=== PATIENT | female | born 1965 | race Caucasian/White ===

== ENCOUNTER 2018-07-01 22:04 | Inpatient (IN) | payer BC ==
[~2018-07-01] VITALS: Ht 154.9 cm; Wt 67.1 kg
[2018-07-01 22:09] VITALS: BP_SYST 148
[2018-07-01] MEDS ORDERED: ASPIRIN 81 MG TAB.CHEW PO ONE (22:30)
[2018-07-01 23:06] LABS: HEMATOCRIT 40.1 % (36-48); HEMOGLOBIN 13.7 g/dL (12.0-16.0); RED BLOOD CELL COUNT(AUTO) 4.51 MIL/uL (4.2-6.2); WHITE BLOOD COUNT (AUTO) 7.2 K/uL (4.8-10.8)
[2018-07-01 23:07] LABS: BASOPHILS % (AUTO) 0.5 % (0.0-2.0); EOSINOPHILS % (AUTO) 1.5 % (0.0-4.0); LYMPHOCYTES # (AUTO) 2.2 K/uL (1.0-5.5); LYMPHOCYTES % (AUTO) 30.7 % (20.5-51.5); MEAN CORPUSCULAR HEMOGLOBIN 30 pg (27-31); MEAN CORPUSCULAR HGB CONC 34 % (32-36); MEAN CORPUSCULAR VOLUME 89 fL (79.0-98.0); MONOCYTES % (AUTO) 8.5 % (1.7-9.3); NEUTROPHILS # (AUTO) 4.2 K/uL (1.8-7.7); NEUTROPHILS % (AUTO) 58.8 % (40.0-70.0); PLATELET COUNT (AUTO) 236 K/uL (130-430); RED CELL DISTRIBUTION WIDTH 13.4 % (9.0-15.0)
[2018-07-01 23:08] LABS: EOSINOPHILS # (AUTO) 0.1 K/uL (0.0-0.4); MONOCYTES # (AUTO) 0.6 K/uL (0.0-1.0)
[2018-07-01 23:32] LABS: CALCIUM 8.9 mg/dL (8.4-11.0); CREATININE 0.63 mg/dL (0.55-1.30); POTASSIUM 3.9 mmol/L (3.5-5.1)
[2018-07-01 23:39] LABS: TOTAL BILIRUBIN 0.5 mg/dL (0.0-1.0)
[2018-07-01 23:52] LABS: PROTHROMBIN TIME 9.9 SECS (9.5-12.5)
[2018-07-02] VITALS (7 sets, daily range): BP systolic 102–129
--- NOTE | 2018-07-02 00:30 | NUR ---
Placed in room 1 . Placed on warp dyeing vat tender, blood pressure machine and pulse oximeter. To gown for exam. Side rails up.
--- NOTE | 2018-07-02 00:57 | NUR ---
Pt came to the ED for chest pain. Pt describes pain as "chest tightness." Reports pain is 5/10. Denies n/v/d or fever. HX of non-hodkins lymphoma but reports last radiation treatment was May 2015. No other complaints/injuries noted. Will cont. to monitor.
[2018-07-02] MEDS ORDERED: ASPIRIN 81 MG TAB.CHEW ONE (00:59)
--- NOTE | 2018-07-02 00:59 | NUR ---
ER at bedside examining patient.
[2018-07-02] MEDS ORDERED: ASPIRIN 81 MG TAB.CHEW PO ONE (01:00)
--- NOTE | 2018-07-02 01:00 | NUR ---
PT resting comfortably in bed. No signs of acute distress. Will cont. to monitor.
--- NOTE | 2018-07-02 01:00 | NUR ---
PT resting comdfortably in bed. No signs of acute distress. Will cont. to monitor.
--- NOTE | 2018-07-02 02:00 | NUR ---
Pt sleeping in bed with at bedside. No signs of acute distress. Will cont. to monitor.
--- NOTE | 2018-07-02 03:00 | NUR ---
Pt resting in bed. No signs of distress.
--- NOTE | 2018-07-02 04:15 | NUR ---
Patient will be admitted to care of Dr. Sam. Admitted to Tele unit. Will go to room 135. Belongings list completed. Summary report printed. Report will be given at bedside.
[2018-07-02] MEDS ORDERED: NITROGLYCERIN 0.4 MG TAB.SUBL SL ONE (04:30)
--- NOTE | 2018-07-02 05:06 | NUR ---
ADMISSION: The patient, JANICE UNDERWOOD, 52 y/o, F admitted by SAMIA ARROYO MD,WITH THE DIAGNOSIS CHEST PAIN , was given written information regarding hospital policies, unit procedures and contact persons.
--- NOTE | 2018-07-02 05:31 | NUR ---
CONSULTATION PAGED/CALLED Reason for Consultation: CHEST PAIN Person Who was Notified: KJ Consulting Physician: LIZZETH Educational Psychology Professor Specialty: CARDIO Ordering Physician: CRUZ
--- NOTE | 2018-07-02 07:29 | NUR ---
End of shift note Patient is resting comfortably at this time with at bedside. No s/s of any distress noted. All needs met and anticipated by noc nurses. Endorse to incoming nurse
--- NOTE | 2018-07-02 07:40 | NUR ---
AM NOTES IN BED, AWAKE ALERT AND ORIENTED. DENIES ANY CHEST PAIN OR SHORTNESS OF BREATH AT THIS TIME. AMBULATE WITH STEADY GAIT. FAMILY AT BEDSIDE. SAFETY PRECAUTION OBSERVED. CALL LIGHT WITHIN REACH. WILL CONTINUE TO MONITOR.
[2018-07-02] MEDS: ASPIRIN 81 MG TAB.CHEW PO SCH (08:43)
[2018-07-02 10:41] LABS: CHOLESTEROL 119 mg/dL (<200); HDL CHOLESTEROL 36 mg/dL (>55); LDL CHOLESTEROL 73 mg/dL (<100); TRIGLYCERIDES 89 mg/dL (30-150)
--- NOTE | 2018-07-02 11:52 | NUR ---
Notes- resting in bed, denies any chest pain. seen by Dr. Contreras. 2decho done. no acute distress noted. safety precaution. call light in reach. will continue to monitor.
--- NOTE | 2018-07-02 14:13 | NUR ---
Notes- Resting in bed, Seen by Dr. Sam at bedside. denies any Chest pain or discomfort. No acute distress noted.
[2018-07-02] MEDS ORDERED: ENOXAPARIN SODIUM 40 MG/0.4 ML SYRINGE SUBCUT ONE (14:30)
--- NOTE | 2018-07-02 18:35 | NUR ---
Notes- In bed, eating dinner. denies any chest pain or discomfort. family at bedside. safety precaution observed. call light in reach. will monitor.
--- NOTE | 2018-07-02 19:30 | NUR ---
CHANGE OF SHIFT: pt. awake, alert and oriented, andorran speaking, speaks little bit of Lao, denies any chest pain, reminded to use call light for help and verbalized understanding.
--- NOTE | 2018-07-02 20:00 | NUR ---
NOTES: checked pt.,family at bedside. denies any chest pain nor shortness of breath. on monitoring and evaluation advisor and shows sinus bradycardia. moves all extremities. IV lock on rt. antecubital. instructed to call nurse for help.
--- NOTE | 2018-07-02 22:00 | NUR ---
NOTES: pt. sleeping when checked. pt. at bedside,will stay for the night. no complaints manifested.
--- NOTE | 2018-07-03 01:00 | NUR ---
NOTES: pt. asleep, on sinus bradycardia, will continue to monitor.
--- NOTE | 2018-07-03 03:07 | NUR ---
NOTES: pt. sleeping. condition unchanged.
--- NOTE | 2018-07-03 05:28 | NUR ---
NOTES: pt. still asleep, remain at bedside. remains sinus bradycardia.
--- NOTE | 2018-07-03 06:30 | NUR ---
CLOSING NOTES; pt. still sleeping, no complaints manifested, no chest pain. for further care and assistance, will endorse to day shift.
--- NOTE | 2018-07-03 07:55 | NUR ---
OPENING NOTE patient is resting in bed, visitor present, A&Ox4, assessment completed, educated on plan of care and call light system, patient verbalized understanding, patient denies any pain at this time, no signs of respiratory distress, bed in the lowest position, two side rails up, call light within reach, fall and aspiration precautions in place.
--- NOTE | 2018-07-03 08:20 | NUR ---
patient off unit for cardiac stress test.
[2018-07-03 09:15] VITALS: BP_SYST 105
[2018-07-03] MEDS ORDERED: THEOPHYLLINE ANHYDROUS 200 MG TAB.SR.12H PO ONE (09:15)
[2018-07-03] MEDS ORDERED: THEOPHYLLINE ANHYDROUS 200 MG TAB.SR.12H PO SCH (09:15)
--- NOTE | 2018-07-03 09:35 | NUR ---
patient back on unit from stress test.
[2018-07-03] MEDS: ASPIRIN 81 MG TAB.CHEW PO SCH (09:39)
[2018-07-03] MEDS: ENOXAPARIN SODIUM 40 MG/0.4 ML SYRINGE SUBCUT SCH (09:40)
--- NOTE | 2018-07-03 09:45 | NUR ---
CONSULTATION PAGED/CALLED Reason for Consultation: [] BRADYCARDIA Person Who was Notified: [] MARY ELLEN Consulting Physician: [] DR NICHOLE Flower Planter Specialty: [] CARDIAC .NET ARCHITECT Ordering Physician: [] DR Kenyon MOREAU
[2018-07-03] MEDS: NACL 0.9% 1,000 ML IV SCH ×2 (09:50→19:40)
[2018-07-03] MEDS ORDERED: ATROPINE SULFATE 1 MG/10 ML SYRINGE IVP ONE (10:45)
--- NOTE | 2018-07-03 11:41 | NUR ---
ROUNDS patient is resting in bed, patient denies any pain at this time, no signs of respiratory distress, bed in the lowest position, two side rails up, bed alarm on, call light within reach, fall and aspiration precautions in place, IV line clean and intact.
[2018-07-03 12:25] VITALS: BP_SYST 101
--- NOTE | 2018-07-03 14:05 | NUR ---
ROUNDS patient is resting in bed, visitor present, patient denies any pain at this time, no signs of respiratory distress, patient was assisted to the bathroom, patient tolerated well, bed in the lowest position, two side rails up, bed alarm on, call light within reach, fall and aspiration precautions in place, IV line clean and intact.
[2018-07-03 16:41] VITALS: BP_SYST 99
--- NOTE | 2018-07-03 18:50 | NUR ---
CLOSING NOTE patient is resting in bed, patient denies any pain at this time, no signs of respiratory distress, no other needs at this time, will endorse report to noc shift nurse, bed in the lowest position, two side rails up, bed alarm on, call light within reach, fall and aspiration precautions in place, IV line clean and intact.
--- NOTE | 2018-07-03 19:15 | NUR ---
CHANGE OF SHIFT: pt. awake, alert, oriented, watching tv with at bedside. denies any chest pain, nor shortness of breath. IV NS @ 100 cc/hr. via rt. antecubital. call light within reach.
[2018-07-03 19:53] VITALS: BP_SYST 111
[2018-07-03] MEDS: THEOPHYLLINE ANHYDROUS 200 MG TAB.SR.12H PO SCH (20:28)
--- NOTE | 2018-07-03 20:30 | NUR ---
NOTES: due med given. pt. assisted to the restroom and voided. at bedside. pt. on room air. IVF patent. cardiac pattern shows sinus bradycardia @ 50. no chest pain. call light within reach.
[2018-07-03 23:29] VITALS: BP_SYST 119
--- NOTE | 2018-07-03 23:30 | NUR ---
NOTES: pt. still awake with family at bedside, c/o heartburn, will call MD. asked state appellate clerk to paged Dr. Sam.
[2018-07-03] MEDS ORDERED: FAMOTIDINE 20 MG TABLET PO ONE (23:45)
--- NOTE | 2018-07-03 23:45 | NUR ---
NOTES: Dr. Sam called back and with order, Pepcid 40 mg po given to pt. repositioned self for comfort. reminded to call if going to the restroom. family still at bedside.
--- NOTE | 2018-07-04 01:00 | NUR ---
NOTES: pt. 2 sons still at bedside, will stay for the night. continue to monitor.
--- NOTE | 2018-07-04 03:16 | NUR ---
NOTES: pt. sleeping. continue to monitor. condition observed.
--- NOTE | 2018-07-04 05:42 | NUR ---
NOTES: condition unchanged. pt. still asleep. IVF patent.
[2018-07-04] MEDS: NACL 0.9% 1,000 ML IV SCH ×2 (06:11→15:21)
--- NOTE | 2018-07-04 06:30 | NUR ---
CLOSING NOTES; pt. awakened, assisted to the restroom , ambulated without difficulty, no dizziness. pt. voided. no chest pain. IVF continuous with NS @ 100 cc/hr. for further care and assistance. at bedside. call light within reach.
--- NOTE | 2018-07-04 08:00 | NUR ---
OPENING NOTE patient received resting in bed A&O x4, patient denies any acute distress or pain at this time, breathing is even and unlabored on room air, educated patient on plan of care and call light system, will continue to monitor, IVF infusing well, safety precautions in place, at bedside, call light within reach.
[2018-07-04 08:01] VITALS: BP_SYST 110
[2018-07-04] MEDS: ASPIRIN 81 MG TAB.CHEW PO SCH (08:28)
[2018-07-04] MEDS: THEOPHYLLINE ANHYDROUS 200 MG TAB.SR.12H PO SCH (08:29)
[2018-07-04] MEDS: ENOXAPARIN SODIUM 40 MG/0.4 ML SYRINGE SUBCUT SCH (08:29)
--- NOTE | 2018-07-04 10:15 | NUR ---
NOTES patient is resting in bed on phone, patient denies any acute distress or pain at this time, breathing is even and unlabored on room air, IVF infusing as ordered, will continue to monitor, is at bedside, safety precautions in place, call light within reach.
[2018-07-04 11:17] VITALS: BP_SYST 105
--- NOTE | 2018-07-04 12:25 | NUR ---
NOTES patient is resting in bed eating lunch, patient denies any acute distress or pain at this time, breathing is even and unlabored on room air, IVF infusing as ordered, will continue to monitor, safety precautions in place, at bedside, call light within reach.
--- NOTE | 2018-07-04 14:56 | NUR ---
NOTES PATIENT IS RESTING IN BED, IVF INFUSING WELL WITH NO SIGNS OF INFILTRATION, BREATHING IS EVEN AND UNLABORED ON ROOM AIR, PATIENT DENIES ANY ACUTE DISTRESS OR PAIN AT THIS TIME, WILL CONTINUE TO MONITOR, SAFETY PRECAUTIONS IN PLACE, CALL LIGHT WITHIN REACH.
[2018-07-04 16:25] VITALS: BP_SYST 97
[2018-07-04 16:35] VITALS: BP_SYST 116
[2018-07-04] MEDS ORDERED: THEO200T21 PO (16:59)
[2018-07-04 17:00] VITALS: BP_SYST 116
--- NOTE | 2018-07-04 17:25 | NUR ---
D/C Patient Patient given medication reconciliation form and D/C instructions. Exit Care provided. Patient verbalized understanding. MD discussed with patient the results and treatment provided. Ambulatory with steady gait for discharge to home. Patient in stable condition, ID band removed. IV catheter removed, intact and dressing applied, no active bleeding. Rx of TIFFANY DUR given. Patient educated on pain management. All belongings sent with patient.
[2018-07-04] MEDS ORDERED: FAMOTIDINE 20 MG TABLET PO SCH (21:00)
== END 2018-07-04 17:30 | disposition home or self-care (01) | DRG 554 ==
LOC: SED 22:04 → STU 07-02 04:15
PROVIDERS: ADMIT Family Medicine; ATTEND Family Medicine
DX: M93.88 Other specified osteochondropathies other (principal); E78.5 Hyperlipidemia, unspecified; R00.1 Bradycardia, unspecified; R55 Syncope and collapse; Z90.710 Acquired absence of both cervix and uterus; Z85.72 Personal history of non-Hodgkin lymphomas; Z92.21 Personal history of antineoplastic chemotherapy
CPT/HCPCS: 36415; 71045; 80053; 80061; 82550-TC; 83880; 84484; 85025; 85610-TC; 85730-TC; 93005; 93017; 93306; 99285; G0378; J0461; J1650; J7030

== ENCOUNTER 2020-10-02 01:32 | Inpatient (IN) | payer BC, SELFPAY ==
[~2020-10-02] VITALS: Ht 160 cm; Wt 67.1 kg
[~2020-10-02 01:32] MED LIST: THEO200T21 PO
[2020-10-02 01:50] VITALS: BP_SYST 138
--- NOTE | 2020-10-02 01:50 | NUR ---
Patient to ER bed 6 to gown for evaluation. Side rails up.
--- NOTE | 2020-10-02 02:00 | NUR ---
Patient AAOx4 and ambulatory c/o upper abdominal pain with N/V/D after eating dinner last night. Patient stated after eating she started to vomit x 4. currently stating pain 8/10. Has history of Non-hodgkins and HLD. VSS.
--- NOTE | 2020-10-02 02:13 | NUR ---
Dr. Zazueta at bedside for patient evaluation.
[2020-10-02] MEDS ORDERED: NACL 0.9% 1,000 ML IV ONE (02:30)
[2020-10-02] MEDS ORDERED: MORPHINE 4 MG INJ. 4 MG/ML VIAL IVP ONE (02:30)
[2020-10-02] MEDS ORDERED: PROCHLORPERAZINE EDISYLATE 10 MG/2 ML VIAL IVP ONE (02:30)
--- NOTE | 2020-10-02 02:30 | NUR ---
# 20 gauge angiocath placed to RAC. Use of asceptic technique. Opsite placed over site. Blood return noted. Blood for lab drawn from site. Flushed with 10 cc of normal saline. No evidence of infiltration noted. Patient tolerated well. Urine specimen collected and sent to lab for analysis.
[2020-10-02 02:54] LABS: BASOPHILS % (AUTO) 0.2 % (0.0-2.0); BILIRUBIN,URINE NEGATIVE (NEGATIVE); BLOOD, URINE 2+ (NEGATIVE); CLARITY/URINE CLEAR (CLEAR); COLOR,URINE YELLOW (YELLOW); EOSINOPHILS # (AUTO) 0.1 K/uL (0.0-0.4); GLUCOSE,URINE NEGATIVE (NEGATIVE); HEMATOCRIT 41.9 % (36-48); KETONES,URINE NEGATIVE (NEGATIVE); LEUKOCYTE ESTERASE ,URINE NEGATIVE (NEGATIVE); LYMPHOCYTES # (AUTO) 0.7 K/uL (1.0-5.5); LYMPHOCYTES % (AUTO) 4.6 % (20.5-51.5); MEAN CORPUSCULAR HEMOGLOBIN 30 pg (27-31); MEAN CORPUSCULAR HGB CONC 34 % (32-36); MEAN CORPUSCULAR VOLUME 89 fL (79.0-98.0); MONOCYTES % (AUTO) 6.9 % (1.7-9.3); NEUTROPHILS # (AUTO) 12.6 K/uL (1.8-7.7); NEUTROPHILS % (AUTO) 87.3 % (40.0-70.0); NITRITE, URINE NEGATIVE (NEGATIVE); PLATELET COUNT (AUTO) 189 K/uL (130-430); PROTEIN URINE TRACE (NEGATIVE); RED BLOOD CELL COUNT(AUTO) 4.71 MIL/uL (4.2-6.2); RED CELL DISTRIBUTION WIDTH 13.5 % (9.0-15.0); UROBILINOGEN,URINE 0.2 (0.2-1.0); WHITE BLOOD COUNT (AUTO) 14.4 K/uL (4.8-10.8)
[2020-10-02 02:58] LABS: BACTERIA,URINE FEW /HPF (None Seen); WBC,URINE 0-3 /HPF (0-3)
[2020-10-02 03:09] LABS: CALCIUM 9.1 mg/dL (8.4-11.0); CREATININE 0.57 mg/dL (0.55-1.30); POTASSIUM 3.8 mmol/L (3.5-5.1)
[2020-10-02 03:15] LABS: ALBUMIN 4.3 g/dL (3.4-4.8); TOTAL BILIRUBIN 0.8 mg/dL (0.0-1.0)
--- NOTE | 2020-10-02 03:50 | NUR ---
PATIENT TAKEN TO CT SCAN VIA WHEELCHAIR BY RADIOLOGY STAFF.
--- NOTE | 2020-10-02 04:00 | NUR ---
Patient resting quietly. No acute distress noted. Vital signs within normal range.
[2020-10-02 05:47] VITALS: BP_SYST 102
--- NOTE | 2020-10-02 05:50 | NUR ---
COVID SWAB COLLECTED AND SENT TO LAB FOR ANALYSIS.
--- NOTE | 2020-10-02 06:11 | NUR ---
PATIENT TAKEN TO CTA SCAN VIA AMBULATORY WITH RADIOLOGY STAFF. VSS.
--- NOTE | 2020-10-02 07:09 | NUR ---
Report given to MACEY Apple who will assume care of patient.
--- NOTE | 2020-10-02 07:15 | NUR ---
Assumed care of patient, report received from MACEY Hale. Pt currently resting in bed, no acute distress noted.
--- NOTE | 2020-10-02 07:57 | NUR ---
Admit orders received from Dr. Olguin, pt to go to med-surg. Talked to [facility], [facility], no beds available on the floor right now, they will let us know when they have one open.
[2020-10-02] MEDS ORDERED: MORPHINE 4 MG INJ. 4 MG/ML VIAL IVP PRN (08:15)
[2020-10-02] MEDS ORDERED: ONDANSETRON HCL 4 MG/2 ML VIAL IVP PRN (08:15)
[2020-10-02] MEDS ORDERED: ACETAMINOPHEN 325 MG TABLET PO PRN (08:15)
[2020-10-02] MEDS ORDERED: MORPHINE 2 MG/ML INJ. SYRINGE IVP PRN (08:15)
[2020-10-02] MEDS ORDERED: D5NS 1,000 ML IV SCH (08:15)
[2020-10-02] MEDS ORDERED: METOCLOPRAMIDE HCL 10 MG/2 ML VIAL IVP PRN (08:15)
--- NOTE | 2020-10-02 10:14 | NUR ---
Dr. Johnson at bedside for consult
--- NOTE | 2020-10-02 11:42 | NUR ---
Requested hospital bed from [facility] for patient.
--- NOTE | 2020-10-02 12:21 | NUR ---
Pt and upset with Dr. Johnson consult, stated that nothing was explained to them and that he said her CT scan was normal and she didn't need to be admitted. Per , pt would like to sign out AMA. Dr. Au in to speak with patient and , still requesting to leave AMA. Paperwork signed and placed on chart. ID arm band removed. IV catheter removed intact and dressing applied, no active bleeding.
== END 2020-10-02 12:21 | disposition left against medical advice (07) | DRG 815 ==
LOC: SED 01:32 → SMU 07:49
PROVIDERS: ADMIT Internal Medicine Hospice and Palliative Medicine; ATTEND Internal Medicine Hospice and Palliative Medicine
DX: R59.1 Generalized enlarged lymph nodes (principal); C85.90 Non-Hodgkin lymphoma, unspecified, unspecified site; Z20.822 Contact with and (suspected) exposure to COVID-19; Z79.899 Other long term (current) drug therapy
CPT/HCPCS: 36415; 76376; 80053; 81000; 83615; 83690; 85025; 86886; 86900; 86901; J0780; J2270; Q9967

== ENCOUNTER 2022-10-16 05:14 | Inpatient (IN) | payer BC ==
[~2022-10-16] VITALS: Ht 162.6 cm; Wt 52.2 kg
[2022-10-16] VITALS (10 sets, daily range): BP systolic 94–126; PULSE 60–80; RESP 11–18; TEMP 96.1–98; O2SAT 97–100
--- NOTE | 2022-10-16 05:26 | NUR ---
Placed in room 6 . Placed on field crop farming supervisor, blood pressure machine and pulse oximeter. To gown for exam. Side rails up. Report given to VICENTA CHOUDHURY.
--- NOTE | 2022-10-16 05:26 | NUR ---
PT SHYANN from home and bulgarian speaker is complaining lowered abd pain 10/10,She usually has this pain, she was admintted by the same things 2 weeks ago at [facility]. N/V 4 times today. HX lympahopma, abd surgery
[2022-10-16] MEDS ORDERED: ONDANSETRON HCL 4 MG/2 ML VIAL IVP ONE ×2 (05:30→09:00)
[2022-10-16] MEDS ORDERED: NACL 0.9% 1,000 ML IV ONE ×2 (05:30→09:00)
[2022-10-16] MEDS ORDERED: fentaNYL CITRATE/PF 100 MCG/2 ML AMP IVP ONE (05:30)
[2022-10-16 05:59] LABS: BASOPHILS # (AUTO) 0.1 K/uL (0.0-0.2); BASOPHILS % (AUTO) 1.2 % (0.0-2.0); EOSINOPHILS # (AUTO) 0.1 K/uL (0.0-0.4); EOSINOPHILS % (AUTO) 1.4 % (0.0-4.0); HEMATOCRIT 35.1 % (36-48); HEMOGLOBIN 10.8 g/dL (12.0-16.0); LYMPHOCYTES # (AUTO) 1.1 K/uL (1.0-5.5); LYMPHOCYTES % (AUTO) 26.4 % (20.5-51.5); MEAN CORPUSCULAR HEMOGLOBIN 24 pg (27-31); MEAN CORPUSCULAR HGB CONC 31 % (32-36); MEAN CORPUSCULAR VOLUME 77 fL (79.0-98.0); MONOCYTES # (AUTO) 0.1 K/uL (0.0-1.0); MONOCYTES % (AUTO) 3.3 % (1.7-9.3); NEUTROPHILS # (AUTO) 2.9 K/uL (1.8-7.7); NEUTROPHILS % (AUTO) 67.7 % (40.0-70.0); PLATELET COUNT (AUTO) 167 K/uL (130-430); RED BLOOD CELL COUNT(AUTO) 4.58 MIL/uL (4.2-6.2); WHITE BLOOD COUNT (AUTO) 4.2 K/uL (4.8-10.8)
--- NOTE | 2022-10-16 06:05 | NUR ---
SON at the bedside
[2022-10-16 06:17] LABS: ALBUMIN 3.9 g/dL (3.4-4.8); CALCIUM 8.9 mg/dL (8.4-11.0); CREATININE 0.55 mg/dL (0.55-1.30); TOTAL BILIRUBIN 0.5 mg/dL (0.0-1.0)
--- NOTE | 2022-10-16 06:24 | NUR ---
pt went to CT
--- NOTE | 2022-10-16 06:43 | NUR ---
DR. REYES EXAMINING THE PATIENT
--- NOTE | 2022-10-16 07:30 | NUR ---
ASSUMED CARE OF A&OX 4 PT WITH CLEAR SPEECH AND PATENT AIRWAY AND 6/10 ABDOMINAL PAIN THAT BEGAN YESTERDAY. PT IS CURRENTLY UNDER TREATMENT AT [facility].
[2022-10-16] MEDS ORDERED: MORPHINE 4 MG INJ. 4 MG/ML VIAL IVP ONE (09:00)
[2022-10-16] MEDS ORDERED: metroNIDAZOLE 500 mg/NS 100 ML IV ONE (09:00)
[2022-10-16] MEDS ORDERED: ONDANSETRON HCL 4 MG/2 ML VIAL IVP PRN ×2 (09:00→14:00)
[2022-10-16] MEDS ORDERED: PIPERACILLIN/TAZO 3.375 GM in NS 50 ML IV ONE (09:00)
[2022-10-16] MEDS ORDERED: MORPHINE 4 MG INJ. 4 MG/ML VIAL IVP PRN (09:00)
[2022-10-16] MEDS ORDERED: DOCU-156 PO (09:06)
[2022-10-16] MEDS ORDERED: SULF1TAB47 (09:06)
[2022-10-16] MEDS ORDERED: PANT40TA45 PO (09:06)
--- NOTE | 2022-10-16 09:06 | NUR ---
Admit bed requested Patient will be admitted to care of . Admitted to TELE unit. Diagnosis ACUTE ABDOMEN Inpatient (Yes or No) YES Observation (Yes or No) NO Orientation concerns or request close to nursing station (Yes or No) NO Covid Status NA On vent or bipap NO Isolation requirements NO Needs a sitter NO From Home (Yes or if No enter name of facility) HOME Requires Dialysis (Yes or No) NO Med Rec Completed (Yes of No) YES
--- NOTE | 2022-10-16 09:30 | NUR ---
PER PT'S RADIOLOGY RESULTS PT WILL BE ADMITTED BY DR. WILLIAMSON AND CONSULTED BY DR. VELOZ FOR SURGERY. PT REMAINS STABLE ON BEDSIDE MONITOR.
[2022-10-16] MEDS ORDERED: PIPERACILLIN/TAZOBACTAM 3.375 GM/VIAL (ZOSYN) IV ONE (09:51)
[2022-10-16] MEDS ORDERED: NALOXONE HCL 0.4 MG/ML AMP (NARCAN) IVP PRN (10:45)
[2022-10-16] MEDS: HYDROmorphone 1 MG/ML INJ. CARTRIDGE IM PRN ×2 (10:57→19:44)
[2022-10-16 11:00] LABS: BILIRUBIN,URINE NEGATIVE (NEGATIVE); BLOOD, URINE NEGATIVE (NEGATIVE); CLARITY/URINE CLEAR (CLEAR); COLOR,URINE YELLOW (YELLOW); GLUCOSE,URINE NEGATIVE (NEGATIVE); KETONES,URINE NEGATIVE (NEGATIVE); LEUKOCYTE ESTERASE ,URINE NEGATIVE (NEGATIVE); NITRITE, URINE NEGATIVE (NEGATIVE); PROTEIN URINE NEGATIVE (NEGATIVE); UROBILINOGEN,URINE 0.2 (0.2-1.0)
--- NOTE | 2022-10-16 11:00 | NUR ---
MD WILLIAMSON AT BEDSIDE SPEAKING WITH PT ABOUT HE ADMISSION PLAN.
--- NOTE | 2022-10-16 11:10 | NUR ---
CLEAR YELLOW URINE COLLECTED AND SENT TO THE LAB.
--- NOTE | 2022-10-16 11:28 | NUR ---
MD VELOZ AT BEDSIDE SPEAKING WITH PT ABOUT PLANNED SURGERY.
--- NOTE | 2022-10-16 11:51 | NUR ---
PT TRANSPORTED TO THE OR BY OR NURSE CORY. CONSENT SIGNED BY MD VELOZ WHO SPOKE WITH PT AND EXPLAINED THE PROCEDURE AND EXPECTED OUTCOME. PT VERBALIZED UNDERSTANDING. PREOP CHECKLIST PERFORMED AND COMPLETED. PT IN GOWN AND NS INFUSING. PT A&OX 4 AND WITHOUT COMPLAINTS OF PAIN UPON TRANSFER TO OR.
[2022-10-16] MEDS ORDERED: ACETAMINOPHEN I.V. 1000 MG 100 ML IV ONE (12:41)
[2022-10-16] MEDS ORDERED: HYDROmorphone 1 MG/ML INJ. CARTRIDGE IVP PRN ×2 (12:45)
[2022-10-16] MEDS ORDERED: LR 1,000 ML IV SCH (12:45)
[2022-10-16] MEDS ORDERED: MEPERIDINE HCL/PF 25 MG/ML DISP.SYRIN IVP PRN (12:45)
[2022-10-16] MEDS ORDERED: METOCLOPRAMIDE HCL 10 MG/2 ML VIAL IVP PRN (12:45)
[2022-10-16] MEDS ORDERED: BUPIVACAINE LIPOSOME/PF 266 MG/20 ML VIAL INFIL ONE (13:43)
[2022-10-16] MEDS: CEFAZOLIN 1 GM IVPB PREMIX 50 ML IV SCH ×3 (14:00→22:30)
[2022-10-16] MEDS ORDERED: KETOROLAC TROMETHAMINE 15 MG VIAL IVP PRN (14:00)
[2022-10-16] MEDS ORDERED: HYDROmorphone 1 MG/ML INJ. CARTRIDGE ONE (14:26)
--- NOTE | 2022-10-16 15:00 | NUR ---
RN NOTES PATIENT CAME IN FROM PACU S/P EXPLOR. LAP/ SMALL BOWEL RESECTION. PATIENT SEEN AWAKE, NOT IN ACUTE DISTRESS, O2 VIA MASK, SPO2 GOOD. SCOPE SHOWS SINUS RHYTHM. NGT IN PLACE, CONNECTED TO LOW INTERMITTENT SUCTION. ABDOMINAL DRESSINGS DRY AND INTACT. MANTILLA CATH. TO DRAINAGE BAG. SCDs ON. INITIAL VITAL SIGN CHECKED AND RECORDED. WILL CONTINUE TO MONITOR PATIENT.
[2022-10-16] MEDS: HYDROmorphone 1 MG/ML INJ. CARTRIDGE IVP PRN (16:10)
[2022-10-16] MEDS: D5/0.45 NS 1,000 ML IV SCH ×2 (17:10→22:31)
--- NOTE | 2022-10-16 19:30 | NUR ---
RECEIVED LYING IN BED, AAO, FOLLOWS COMMANDS WELL. PATIENT IS ON 3LPM/NC, SATURATION WDL. ABLE TO TAKE DEEP BREATHS. MISSILE AND MISSILE CHECKOUT TECHNICIAN IS SHOWING NSR, DENIES CHEST PAIN. BLOOD PRESSURE IS STABLE. ABDOMINAL DRESSING IS DRY AND INTACT. MANTILLA IS DRAINING JONAH COLOR URINE. BILATERAL SCDS ARE ON. AFEBRILE.
[2022-10-16] MEDS: metroNIDAZOLE 500 mg/NS 100 ML IV SCH (22:29)
[2022-10-17] VITALS (11 sets, daily range): BP systolic 96–115; PULSE 62–75; RESP 10–18; TEMP 97.4–98.6; O2SAT 97–100
[2022-10-17] MEDS: HYDROmorphone 1 MG/ML INJ. CARTRIDGE IM PRN ×4 (00:16→22:07)
--- NOTE | 2022-10-17 00:22 | NUR ---
Reports pain to lower abdomen /10 and requesting pain medication. Dilaudid 1 mg IVP given as per MD orders. Will continue to monitor.
[2022-10-17] MEDS: D5/0.45 NS 1,000 ML IV SCH (05:00)
[2022-10-17 05:43] LABS: BASOPHILS % (AUTO) 0.2 % (0.0-2.0); EOSINOPHILS % (AUTO) 0.1 % (0.0-4.0); HEMATOCRIT 25.9 % (36-48); HEMOGLOBIN 8.1 g/dL (12.0-16.0); LYMPHOCYTES # (AUTO) 0.3 K/uL (1.0-5.5); LYMPHOCYTES % (AUTO) 5.6 % (20.5-51.5); MEAN CORPUSCULAR HEMOGLOBIN 24 pg (27-31); MEAN CORPUSCULAR HGB CONC 31 % (32-36); MEAN CORPUSCULAR VOLUME 76 fL (79.0-98.0); MONOCYTES # (AUTO) 0.5 K/uL (0.0-1.0); MONOCYTES % (AUTO) 7.8 % (1.7-9.3); NEUTROPHILS # (AUTO) 5.3 K/uL (1.8-7.7); NEUTROPHILS % (AUTO) 86.3 % (40.0-70.0); PLATELET COUNT (AUTO) 133 K/uL (130-430); RED BLOOD CELL COUNT(AUTO) 3.39 MIL/uL (4.2-6.2); RED CELL DISTRIBUTION WIDTH 17.9 % (9.0-15.0); WHITE BLOOD COUNT (AUTO) 6.2 K/uL (4.8-10.8)
[2022-10-17 06:07] LABS: ALBUMIN 2.4 g/dL (3.4-4.8); CALCIUM 7.1 mg/dL (8.4-11.0); CREATININE 0.45 mg/dL (0.55-1.30); TOTAL BILIRUBIN 0.9 mg/dL (0.0-1.0)
--- NOTE | 2022-10-17 06:30 | NUR ---
Received call from lab to report critical glucose level 589. Fingerstick performed immediately after for comparison. Glucose level FS 136. Called lab and order for re draw issued. waiting for new results of BMP re draw.
[2022-10-17] MEDS: metroNIDAZOLE 500 mg/NS 100 ML IV SCH ×3 (06:55→22:08)
[2022-10-17] MEDS: PIPERACILLIN/TAZO 3.375/DEX-IS 50 ML IV SCH ×4 (06:59→23:40)
[2022-10-17 07:19] LABS: CALCIUM 8.1 mg/dL (8.4-11.0); CREATININE 0.42 mg/dL (0.55-1.30)
--- NOTE | 2022-10-17 07:45 | NUR ---
RN NOTES PATIENT SEEN AWAKE AND ALERT, NOT IN ANY FORM OF DISTRESS. SINUS RHYTHM ON THE MONITOR. ABDOMINAL DRESSINGS DRY AND INTACT.
--- NOTE | 2022-10-17 08:00 | NUR ---
MD VISIT DR. MESSER HERE TO SEE PATIENT. WITH ORDERS. PT IS DOWNGRADED TO .
--- NOTE | 2022-10-17 08:45 | NUR ---
RN NOTES COMPLAINED OF PAIN ON THE POST OP SITE, ABDOMINAL AREA, SCALE OF 5/10. MEDICATED WITH DILAUDID IVP FOR COMFORT. REPOSITIONED.
[2022-10-17] MEDS: HYDROmorphone 1 MG/ML INJ. CARTRIDGE IVP PRN ×2 (08:46→13:03)
--- NOTE | 2022-10-17 09:50 | NUR ---
OPENING NOTES: RECEIVED BEDSIDE SBAR FROM ICU NURSE , PATIENT IS STABLE NO S/S OF ANY DISTRESS, NG TUBE TO LEFT SIDE NOSE, F/C DRAINING TO GRAVITY, ABD DRESSING CLEAN DRY INTACT, NO BLOOD SHOW, NC 3 LTS, SCD'S ON MIKE LEGS, ABLE TO MAKE NEEDS KNOWN, BED AT LOW AND LOCKED POSITION CALL LIGHT IN REACH, NPO AT THIS TIME. WILL GIVE MEDS PER ORDERS.
--- NOTE | 2022-10-17 09:50 | NUR ---
RN NOTES PATIENT TRANSFERRED TO RM 117A IN STABLE CONDITION. REPORT GIVEN TO MARIELLA NAVAS
[2022-10-17] MEDS ORDERED: *PPN PER PHARMACY XX PRN (13:30)
[2022-10-17] MEDS ORDERED: INSULIN REGULAR, HUMAN 100 UNITS/ML, 3 ML VIAL (humuLIN R) SUBCUT PRN (13:30)
[2022-10-17] MEDS ORDERED: DEXTROSE 50% JECT 50 ML DISP.SYRIN IVP PRN (13:30)
[2022-10-17 14:07] LABS: PHOSPHORUS 3.1 mg/dL (2.7-4.5)
[2022-10-17] MEDS ORDERED: MAGNESIUM SULFATE 50 ML IV ONE (14:30)
[2022-10-17] MEDS ORDERED: POTASSIUM CHLORIDE 40 MEQ in 0.45% NS 250 ML IV ONE (15:00)
[2022-10-17] MEDS: D5LR 1,000 ML IV SCH (16:35)
--- NOTE | 2022-10-17 18:42 | NUR ---
CLOSING NOTES: PATIENT REMAINED STABLE THOUGHT THE DAY NON LABOR BREATHING, NO S/S OF ANY DISTRESS ALL NEEDS WHERE MADE KNOWN, BED AT LOW AND LOCKED POSITION, CALL LIGHT IN REACH, WILL GIVE PM SHIFT NURSE BEDSIDE SBAR.
--- NOTE | 2022-10-17 20:00 | NUR ---
NURSE REPORT REPORT OBTAINED FROM [facility] NURSE YOSEF AND THIS NURSE ASSUME CARE. VSS. NO C/O PAIN OR DISCOMFORT. CALL LIGHT WITHIN REACH. SIDE RAILS ELEVATED. MANTILLA DRAINING YELLOW URINE. IV D51/2NS INFUSING AT 100 ML IN R WRIST. KCL INFUSING. PT C/O IV SITE HURTING. JOAN FRANCO RN
--- NOTE | 2022-10-17 22:07 | NUR ---
NURSE NOTES PATIENT MEDICATED FOR PAIN WITH DILAUDID 1 MG AT THIS TIME. HAD TO SLOWLY GIVEN IVP OF DILAUDID. SHE STATED THE PAIN IS IN ABD BESIDES THE IV SITE. THEN HER SON SAYS SHE HAS A PICC LINE. JOAN FRANCO RN
--- NOTE | 2022-10-18 | NUR ---
NURSE NOTES PATIENT WAS SUPPOSED TO GET IVPB ZOSYN AT 1800, BUT THE NURSE GAVE THE 1200 DOSE ABOUT 1502. CHARGE NURSE NOVA STATED TO KEEP THE ATB AND GIVEN MN DOSE AT 2300, AND PHARMACY STATED THAT ALSO. VSS. AFEB. NO C/O PAIN OR DISCOMFORT. RECEIVED IVPB ZOSYN AND FLAGYL.
[2022-10-18 01:11] VITALS: BP_SYST 93; PULSE 76; RESP 18; TEMP 97.8; O2SAT 100
--- NOTE | 2022-10-18 01:30 | NUR ---
NURSE NOTES VSS. AFEB. NO C/O PAIN OR DISCOMFORT. SON SLEEPING IN OTHER BED. HE WAS TOLD HE CANNOT SLEEP ON THE BED.
[2022-10-18 05:28] LABS: BASOPHILS % (AUTO) 0.4 % (0.0-2.0); EOSINOPHILS # (AUTO) 0.1 K/uL (0.0-0.4); EOSINOPHILS % (AUTO) 2.3 % (0.0-4.0); HEMATOCRIT 24.4 % (36-48); HEMOGLOBIN 7.6 g/dL (12.0-16.0); LYMPHOCYTES # (AUTO) 0.4 K/uL (1.0-5.5); LYMPHOCYTES % (AUTO) 8.5 % (20.5-51.5); MEAN CORPUSCULAR HEMOGLOBIN 24 pg (27-31); MEAN CORPUSCULAR HGB CONC 31 % (32-36); MEAN CORPUSCULAR VOLUME 77 fL (79.0-98.0); MONOCYTES # (AUTO) 0.4 K/uL (0.0-1.0); MONOCYTES % (AUTO) 9.7 % (1.7-9.3); NEUTROPHILS # (AUTO) 3.5 K/uL (1.8-7.7); NEUTROPHILS % (AUTO) 79.1 % (40.0-70.0); PLATELET COUNT (AUTO) 131 K/uL (130-430); RED BLOOD CELL COUNT(AUTO) 3.19 MIL/uL (4.2-6.2); RED CELL DISTRIBUTION WIDTH 17.5 % (9.0-15.0); WHITE BLOOD COUNT (AUTO) 4.4 K/uL (4.8-10.8)
[2022-10-18] MEDS: metroNIDAZOLE 500 mg/NS 100 ML IV SCH ×3 (05:42→21:26)
[2022-10-18] MEDS: PIPERACILLIN/TAZO 3.375/DEX-IS 50 ML IV SCH ×2 (05:43→12:52)
[2022-10-18] MEDS: HYDROmorphone 1 MG/ML INJ. CARTRIDGE IM PRN ×3 (06:01→20:21)
[2022-10-18 06:07] LABS: ALBUMIN 2.2 g/dL (3.4-4.8); CALCIUM 7.6 mg/dL (8.4-11.0); CREATININE 0.43 mg/dL (0.55-1.30); PHOSPHORUS 2.4 mg/dL (2.7-4.5); TOTAL BILIRUBIN 1.1 mg/dL (0.0-1.0)
[2022-10-18] MEDS: D5LR 1,000 ML IV SCH ×3 (06:19→17:44)
--- NOTE | 2022-10-18 06:30 | NUR ---
NURSE NOTES IVPB ZOSYN AND FLAGYL GIVEN. BG 96. NO INSULIN NEEDED. JOAN FRANCO RN
--- NOTE | 2022-10-18 07:34 | NUR ---
NURSE REPORT REPORT GIVEN TO [facility] NURSE BILLY TO ASSUMED CARE OF PATIENT. SBAR GIVEN. ALL QUESTIONS ANSWERED. JOAN FRANCO RN
[2022-10-18 10:00] VITALS: O2SAT 98
--- NOTE | 2022-10-18 10:00 | NUR ---
NGT REMOVED BY . PT TOLERATED WELL
[2022-10-18 11:42] VITALS: BP_SYST 112; PULSE 72; RESP 17; TEMP 97.6; O2SAT 98
--- NOTE | 2022-10-18 15:24 | NUR ---
CONSULTATION: REASON FOR CONSULT: PERITONITIS/E.COLI CONSULTING PHYSICIAN: PEYTON ORDERED BY: CLAY SPOKE WITH SAMY [phone]
--- NOTE | 2022-10-18 15:55 | NUR ---
Dietitian Recommendations * Consider advancement of diet --> Clear Liquid diet * If PO diet is not indicated, TPN D30%, AA8.5% at 65 ml/hr (goal rate), IL20% at 5 ml/hr daily via central line Provides: 1301 kcal/day, 66 gm protein/day, 1680 ml total volume/day, and GIR: 3.1 mg CHO/kg/min LP, MS, RD Please refer to Nutrition Assessment for details. Addendum: 10/18/22 at [address] Amended: Links added.
[2022-10-18 16:28] VITALS: BP_SYST 95; PULSE 81; RESP 16; TEMP 97.4; O2SAT 100
--- NOTE | 2022-10-18 16:31 | NUR ---
MANTILLA REMOVED PER ORDERS. PT AND FAMILY EDUCATED. PT TOLERATED WELL
[2022-10-18 16:37] LABS: TOTAL IRON BIND. CAPACITY 264 ug/dL (250-450)
[2022-10-18] MEDS: FLUCONAZOLE 200 mg/ NS 100 ML IV SCH (18:50)
--- NOTE | 2022-10-18 19:39 | NUR ---
endorsed care to billy khalil nurse
--- NOTE | 2022-10-18 19:40 | NUR ---
ROUNDS PATIENT RESTING COMFORTABLY IN BED,VITALS STABLE,NO PAIN AT THIS TIME, FAMILY AT THE BEDSIDE. ASSESSMENT DONE AND DOCUMENTED. SEE FLOWSHEET. NEEDS ATTENDED TO. CALL LIGHT PLACED WITHIN REACH.
[2022-10-18 20:00] VITALS: BP_SYST 108; PULSE 82; RESP 17; TEMP 98.5; O2SAT 96; O2SAT 97
[2022-10-18] MEDS ORDERED: [UNRECOGNIZED DRUG - OTHER] IV SCH ×8 (21:00)
[2022-10-18] MEDS ORDERED: K PHOS IV SCH ×8 (21:00)
[2022-10-18] MEDS ORDERED: SODIUM ACETATE IV SCH ×8 (21:00)
[2022-10-18] MEDS ORDERED: TPN CENTRAL IV SCH ×8 (21:00)
[2022-10-18] MEDS ORDERED: MVI IV SCH ×8 (21:00)
[2022-10-18] MEDS ORDERED: D5LR 1,000 ML IV SCH (21:00)
[2022-10-19] VITALS: BP_SYST 114; PULSE 83; RESP 17; TEMP 98.2; O2SAT 96
--- NOTE | 2022-10-19 01:10 | NUR ---
ACCU CHECK BLOOD SUGAR CHECK DONE,125,NO INSULIN COVERAGE. WILL CONTINUE TO MONITOR.
[2022-10-19] MEDS: HYDROmorphone 1 MG/ML INJ. CARTRIDGE IM PRN ×3 (01:30→17:20)
[2022-10-19] MEDS: metroNIDAZOLE 500 mg/NS 100 ML IV SCH ×3 (05:13→21:21)
[2022-10-19 06:23] LABS: BASOPHILS % (AUTO) 0.3 % (0.0-2.0); EOSINOPHILS # (AUTO) 0.1 K/uL (0.0-0.4); EOSINOPHILS % (AUTO) 2.1 % (0.0-4.0); HEMATOCRIT 25.6 % (36-48); HEMOGLOBIN 8.1 g/dL (12.0-16.0); LYMPHOCYTES # (AUTO) 0.5 K/uL (1.0-5.5); LYMPHOCYTES % (AUTO) 12.3 % (20.5-51.5); MEAN CORPUSCULAR HEMOGLOBIN 24 pg (27-31); MEAN CORPUSCULAR HGB CONC 32 % (32-36); MEAN CORPUSCULAR VOLUME 76 fL (79.0-98.0); MONOCYTES # (AUTO) 0.5 K/uL (0.0-1.0); MONOCYTES % (AUTO) 10.9 % (1.7-9.3); NEUTROPHILS # (AUTO) 3.3 K/uL (1.8-7.7); NEUTROPHILS % (AUTO) 74.4 % (40.0-70.0); PLATELET COUNT (AUTO) 156 K/uL (130-430); RED BLOOD CELL COUNT(AUTO) 3.37 MIL/uL (4.2-6.2); RED CELL DISTRIBUTION WIDTH 17.2 % (9.0-15.0); WHITE BLOOD COUNT (AUTO) 4.5 K/uL (4.8-10.8)
--- NOTE | 2022-10-19 06:33 | NUR ---
CLOSING NOTES PATIENT AWAKE, NO COMPLAINTS AT THIS TIME, VITALS STABLE. ALL NEEDS ATTENDED TO. SAFETY MEASURES IN PLACED. CALL LIGHT PLACED WITHIN REACH.
[2022-10-19 06:44] LABS: ALBUMIN 2.5 g/dL (3.4-4.8); CALCIUM 7.7 mg/dL (8.4-11.0); CREATININE 0.4 mg/dL (0.55-1.30); PHOSPHORUS 3.2 mg/dL (2.7-4.5); TOTAL BILIRUBIN 0.8 mg/dL (0.0-1.0)
[2022-10-19 08:00] VITALS: BP_SYST 110; PULSE 70; RESP 16; TEMP 98.2; O2SAT 99
[2022-10-19 10:00] VITALS: O2SAT 99
[2022-10-19 12:02] VITALS: BP_SYST 116; PULSE 70; RESP 17; TEMP 97.7; O2SAT 100
[2022-10-19] MEDS ORDERED: BISACODYL 10 MG/SUPPOSITORY RC ONE (13:00)
[2022-10-19] MEDS ORDERED: BISACODYL 10 MG/SUPPOSITORY RC PRN (13:00)
[2022-10-19] MEDS: D5LR 1,000 ML IV SCH (13:10)
[2022-10-19] MEDS ORDERED: KCL 40 mEq in 100 mL (PREMIX) 100 ML IV ONE (14:00)
[2022-10-19] MEDS: SOD FERRIC GLUC COMPLEX/SUC 125 MG in NS 100 ML IV SCH (14:50)
[2022-10-19 18:35] VITALS: BP_SYST 105; PULSE 76; RESP 18; TEMP 99; O2SAT 97
[2022-10-19] MEDS: FLUCONAZOLE 200 mg/ NS 100 ML IV SCH (18:39)
--- NOTE | 2022-10-19 19:25 | NUR ---
pt educated to ambulate. supository given per orders. pt medicated once for pain. kub completed. family at bedside and updated
--- NOTE | 2022-10-19 19:45 | NUR ---
NOTES PATIENT RESTING IN BED, VITALS STABLE,DENIES PAIN AT THIS TIME. ASSESSMENT DONE AND DOCUMENTED. NEEDS ATTENDED TO. SAFETY MEASURES IN PLACED. CALL LIGHT PLACED WITHIN REACH.
[2022-10-19 20:00] VITALS: BP_SYST 112; PULSE 64; RESP 17; TEMP 98.1; O2SAT 100; O2SAT 99
[2022-10-19] MEDS ORDERED: TPN CENTRAL 0.0001 ML, SODIUM ACETATE 40 MEQ, POTASSIUM CHLORIDE 20 MEQ, K PHOS 9 MM, C... IV SCH ×10 (21:00)
[2022-10-20] VITALS: BP_SYST 115; PULSE 68; RESP 18; TEMP 98.5; O2SAT 96
[2022-10-20] MEDS: HYDROmorphone 1 MG/ML INJ. CARTRIDGE IM PRN ×2 (00:41→07:01)
[2022-10-20] MEDS: metroNIDAZOLE 500 mg/NS 100 ML IV SCH ×3 (06:00→21:22)
[2022-10-20 07:00] VITALS: BP_SYST 103; PULSE 73; RESP 18; TEMP 97; O2SAT 96
[2022-10-20 07:55] LABS: ALBUMIN 2.5 g/dL (3.4-4.8); CALCIUM 7.9 mg/dL (8.4-11.0); CREATININE 0.33 mg/dL (0.55-1.30); PHOSPHORUS 3.7 mg/dL (2.7-4.5); TOTAL BILIRUBIN 0.4 mg/dL (0.0-1.0)
[2022-10-20 08:00] VITALS: BP_SYST 103; PULSE 73; RESP 18; TEMP 97.1; O2SAT 96
[2022-10-20] MEDS: HYDROmorphone 1 MG/ML INJ. CARTRIDGE IVP PRN ×2 (11:48→15:41)
[2022-10-20 12:00] VITALS: BP_SYST 120; PULSE 73; RESP 18; TEMP 97.5; O2SAT 99
[2022-10-20] MEDS ORDERED: BISACODYL 10 MG/SUPPOSITORY RC ONE (12:45)
[2022-10-20] MEDS ORDERED: METOCLOPRAMIDE HCL 10 MG/2 ML VIAL IVP ONE (13:00)
[2022-10-20] MEDS: SOD FERRIC GLUC COMPLEX/SUC 125 MG in NS 100 ML IV SCH (15:47)
[2022-10-20 16:00] VITALS: BP_SYST 110; PULSE 65; RESP 18; TEMP 97.8; O2SAT 96
[2022-10-20] MEDS: D5LR 1,000 ML IV SCH (16:24)
[2022-10-20] MEDS: FLUCONAZOLE 200 mg/ NS 100 ML IV SCH (18:25)
[2022-10-20] MEDS: METOCLOPRAMIDE HCL 10 MG/2 ML VIAL IVP SCH (18:25)
[2022-10-20] MEDS: ACETAMINOPHEN I.V. 1000 MG 100 ML IV PRN (19:49)
[2022-10-20 20:00] VITALS: BP_SYST 112; PULSE 72; RESP 17; TEMP 98.7; O2SAT 98
[2022-10-20] MEDS ORDERED: TPN CENTRAL 0.0001 ML, SODIUM ACETATE 40 MEQ, POTASSIUM CHLORIDE 20 MEQ, K PHOS 9 MM, C... IV SCH ×10 (21:00)
[2022-10-21] VITALS: BP_SYST 115; PULSE 69; RESP 16; TEMP 98.2; O2SAT 97
[2022-10-21] MEDS: METOCLOPRAMIDE HCL 10 MG/2 ML VIAL IVP SCH ×4 (00:07→17:38)
--- NOTE | 2022-10-21 00:07 | NUR ---
ACCU CHECK ACCU CHECK DONE ORDERED,BLOOD SUGAR 125, NO INSULIN COVERAGE. WILL CONTINUE TO MONITOR.
[2022-10-21] MEDS: HYDROmorphone 1 MG/ML INJ. CARTRIDGE IM PRN ×4 (00:51→21:06)
[2022-10-21 05:17] LABS: BASOPHILS % (AUTO) 0.3 % (0.0-2.0); EOSINOPHILS # (AUTO) 0.2 K/uL (0.0-0.4); EOSINOPHILS % (AUTO) 4.8 % (0.0-4.0); HEMATOCRIT 25.8 % (36-48); HEMOGLOBIN 8.1 g/dL (12.0-16.0); LYMPHOCYTES # (AUTO) 0.4 K/uL (1.0-5.5); LYMPHOCYTES % (AUTO) 10.1 % (20.5-51.5); MEAN CORPUSCULAR HEMOGLOBIN 24 pg (27-31); MEAN CORPUSCULAR HGB CONC 31 % (32-36); MEAN CORPUSCULAR VOLUME 75 fL (79.0-98.0); MONOCYTES # (AUTO) 0.6 K/uL (0.0-1.0); MONOCYTES % (AUTO) 15.1 % (1.7-9.3); NEUTROPHILS # (AUTO) 2.6 K/uL (1.8-7.7); NEUTROPHILS % (AUTO) 69.7 % (40.0-70.0); PLATELET COUNT (AUTO) 187 K/uL (130-430); RED BLOOD CELL COUNT(AUTO) 3.44 MIL/uL (4.2-6.2); RED CELL DISTRIBUTION WIDTH 17.8 % (9.0-15.0); WHITE BLOOD COUNT (AUTO) 3.7 K/uL (4.8-10.8)
[2022-10-21 05:45] LABS: ALBUMIN 2.5 g/dL (3.4-4.8); CALCIUM 7.8 mg/dL (8.4-11.0); CREATININE 0.25 mg/dL (0.55-1.30); PHOSPHORUS 3.8 mg/dL (2.7-4.5); TOTAL BILIRUBIN 0.3 mg/dL (0.0-1.0)
[2022-10-21] MEDS: ACETAMINOPHEN I.V. 1000 MG 100 ML IV PRN (05:49)
[2022-10-21 06:07] LABS: FOLATE (FOLIC ACID) 12.2 ng/mL (>3.0)
[2022-10-21] MEDS: metroNIDAZOLE 500 mg/NS 100 ML IV SCH ×3 (06:37→21:05)
--- NOTE | 2022-10-21 06:47 | NUR ---
NOTES PATIENT AWAKE, NO COMPLAINTS AT THIS TIME, VITALS STABLE. ALL NEEDS ATTENDED TO. SAFETY MEASURES MAINTAINED. CALL LIGHT PLACED WITHIN REACH.
--- NOTE | 2022-10-21 07:30 | NUR ---
Initial notes Received patient awake in bed,AAOx4, c/o mild discomfort to abdomen, surgical site intact coved with ABD pads/ abdominal binder,no signs of distress noted, saturation at 98% room air. IV infusing to left upper arm PICC x2 lumen patent. Maintain safety precaution,bed in low position and call light w/in reached.
[2022-10-21 07:57] VITALS: BP_SYST 106; PULSE 62; RESP 18; TEMP 97.3; O2SAT 98
[2022-10-21 11:31] VITALS: BP_SYST 104; PULSE 68; RESP 20; TEMP 97.8; O2SAT 99
[2022-10-21] MEDS: D5LR 1,000 ML IV SCH (12:25)
--- NOTE | 2022-10-21 14:41 | NUR ---
PHYSICAL THERAPY CO-SIGN The Physical Therapy Progress Notes documented by [employer] Senior Sergeant have been reviewed. Reviewed/Co-Signed by: Kalyan Varela Documentation Done by:WALE BURGOS Addendum: 10/21/22 at 1441 by Kalyan Varela PT Amended: Links added.
[2022-10-21] MEDS: SOD FERRIC GLUC COMPLEX/SUC 125 MG in NS 100 ML IV SCH (14:58)
[2022-10-21] MEDS ORDERED: POTASSIUM CHLORIDE 40 MEQ in NS 250 ML IV ONE (15:00)
--- NOTE | 2022-10-21 15:22 | NUR ---
Nutrition F/U Admitting Diagnosis: Acute Abd Reviewed Pertinent Medical/Surgical Hx: Medical Record, Patient, Family Member Medical History Comment: Per EMR review, 56 YOF w/ PMH of large B-cell lymphoma x8 yrs followed by [facility] and bowel perforation (January 2022). Pt was brought in from home by EMS. Per EMS, pt began having severe abd pain and N/V CIAIO LUMITE INJECTOR. 7/5 H&P -- Assessment ACUTE ABDOMEN W/ PERFORATED VISCUS LARGE B-CELL LYMPHOMA X 8 YEARS FOLLOWED BY [facility] EXPL . LAP FOR PERFORATED BOWEL IN 2021 Pt is POD 2 s/p exploratory laparoscopy possible laparotomy, possible appendectomy, possible bowel resection, and possible residual lymphoma. Subjective Information RD rounded to pt bedside. Pt awake at time of visit. Pt's son present at bedside and spoke on behalf of pt. Pt son reported that pt is tolerating TPN. No signs of N/V/C/D. Pt's son reported that she has been feeling her stomach growl as well as some discomfort/pain d/t gas build-up in intestines, however she was able to pass gas today. Pt's son reports waiting for doctor to visit to discuss starting oral diet (clear liquids). RD noted that TPN was running at 60ml/hr. RD informed nursing staff that TPN should be running at 65ml/hr. Current Diet Order/Nutrition Support NPO x5 days & TPN D30%, AA8.5% at 65 ml/hr Patient/Significant Other Able To Verbalize Education Provided Not Indicated Pertinent Medications Reviewed NEW Pertinent Labs BG 133 H, Ca 7.8 L, Phos 3.8 WNL, ALB 2.5 L, BUN 6 L, TG 32 WNL (10/18), WBC 3.7 L (worsening) Anthropometrics: Height: 5 feet 4 inches Weight: 115#/52.17 kg -- stable since last visit Body Mass Index: 19.74 kg/m2 Usual Weight: 115 lbs %UBW: 100 %IBW: 96 [place]/Adjusted Body Weight: 120#/55 kg Recent Weight Change: No Weight Status: Underweight Food Allergies: No Usual Diet At Home: Regular CIAIO LUMITE INJECTOR per nursing nutritional screening NEW Skin Integrity Comment: Nic score: 20 10/21 Wounds: medial abd Sx incision noted 10/17 Edema: none noted Current % PO: N/A Estimated Energy Expenditure (kcals/day) 9320-9004 (30-35 kcal/kg CBW d/t Sx healing, wt gain promotion) Estimated Protein Required (g/day) 62-78 (1.2-1.5 gm/kg CBW d/t Sx healing, wt gain promotion) Estimated Fluid Required (l/day) 1.6-1.8 (1 ml/kcal/day for adult maintenance) Problem/Etiology/Signs/Symptoms Suboptimal nutrient intakes R/T metabolic demands AEB estimated nutritional requirements for Sx healing and wt gain promotion. Expected Outcomes/Goals - Monitor provision and tolerance of TPN support and/or advancement of diet w/ goal of pt meeting >80% of estimated nutritional needs, labs trending WNL, normal GI function, and skin integrity/wt maintenance Dietitian Recommendations * Consider advancement of diet --> Clear Liquid diet * Continue TPN D30%, AA8.5% at 65 ml/hr (goal rate), IL20% at 5 ml/hr daily via central line Provides: 1301 kcal/day, 66 gm protein/day, 1680 ml total volume/day, and GIR: 3.1 mg CHO/kg/min Meets: 83% of lower end of estimated caloric needs and 106% of lower end of estimated protein needs Follow Up High Risk: F/U in 2-3days Follow Up By Oct 24, 2022
[2022-10-21 16:32] VITALS: BP_SYST 100; PULSE 75; RESP 18; TEMP 98
[2022-10-21] MEDS ORDERED: PANTOPRAZOLE SODIUM 40 MG/VIAL (PROTONIX) IVP ONE (17:15)
[2022-10-21] MEDS ORDERED: DOCUSATE SODIUM 250 MG CAPSULE PO ONE (17:15)
[2022-10-21] MEDS: FLUCONAZOLE 200 mg/ NS 100 ML IV SCH (18:41)
[2022-10-21 20:30] VITALS: BP_SYST 119; PULSE 78; RESP 16; TEMP 97.2; O2SAT 95
[2022-10-21] MEDS: DOCUSATE SODIUM 250 MG CAPSULE PO SCH (21:05)
[2022-10-21] MEDS: SODIUM ACETATE IV SCH ×10 (21:07)
[2022-10-21] MEDS: [UNRECOGNIZED DRUG - OTHER] IV SCH ×10 (21:07)
[2022-10-21] MEDS: K PHOS IV SCH ×10 (21:07)
[2022-10-21] MEDS: POTASSIUM CHLORIDE IV SCH ×10 (21:07)
[2022-10-21] MEDS: TPN CENTRAL IV SCH ×10 (21:07)
[2022-10-22] MEDS: METOCLOPRAMIDE HCL 10 MG/2 ML VIAL IVP SCH ×4 (00:47→18:23)
[2022-10-22 01:32] VITALS: BP_SYST 109; PULSE 65; RESP 16; TEMP 96.8; O2SAT 98
[2022-10-22] MEDS: HYDROmorphone 1 MG/ML INJ. CARTRIDGE IM PRN ×3 (02:59→15:56)
[2022-10-22] MEDS: metroNIDAZOLE 500 mg/NS 100 ML IV SCH ×3 (06:05→21:13)
[2022-10-22 06:54] LABS: ALBUMIN 2.7 g/dL (3.4-4.8); CALCIUM 8.3 mg/dL (8.4-11.0); CREATININE 0.34 mg/dL (0.55-1.30); PHOSPHORUS 4.2 mg/dL (2.7-4.5); TOTAL BILIRUBIN 0.3 mg/dL (0.0-1.0)
[2022-10-22 08:00] VITALS: BP_SYST 99; PULSE 64; RESP 18; TEMP 97.6
[2022-10-22] MEDS: PANTOPRAZOLE SODIUM 40 MG/VIAL (PROTONIX) IVP SCH (08:51)
[2022-10-22] MEDS: DOCUSATE SODIUM 250 MG CAPSULE PO SCH ×2 (08:51→20:16)
[2022-10-22] MEDS: D5LR 1,000 ML IV SCH (08:56)
--- NOTE | 2022-10-22 12:58 | NUR ---
TPN rate decrease to 30ml/hour until completed per /Linda
[2022-10-22 13:20] VITALS: BP_SYST 102; PULSE 71; RESP 18; TEMP 98.2; O2SAT 99
[2022-10-22] MEDS: SOD FERRIC GLUC COMPLEX/SUC 125 MG in NS 100 ML IV SCH (14:32)
--- NOTE | 2022-10-22 16:27 | NUR ---
>>>PT NOTES<<< PATIENT REFUSED PHYSICAL THERAPY AND STATES SHE WALKED WITH FAMILY EARLIER TODAY. WILL FOLLOW UP TOMORROW 10/23/22.
[2022-10-22 17:07] VITALS: BP_SYST 106; PULSE 68; RESP 20; TEMP 98.4; O2SAT 99
[2022-10-22] MEDS: FLUCONAZOLE 200 mg/ NS 100 ML IV SCH (18:19)
--- NOTE | 2022-10-22 19:00 | NUR ---
Patient resting in bed no signs of distress will endorse
[2022-10-22 20:05] VITALS: BP_SYST 100; PULSE 65; RESP 18; TEMP 97; O2SAT 99
--- NOTE | 2022-10-22 20:05 | NUR ---
RECEIVED PT IN BED, AOX4, EVEN AND UNLABORED BREATHING, C/O ABD PAIN /10, DENIED N/V OR SOB , D5LR AT 50 AND TPN AT 30CC ONGOING TO LORAINE, ABD INCISION C/D/I WITH ABD BINDER ON, PT ABLE TO AMBULATE TO RESTROOM WITH WALKER, SON AT BEDSIDE, WILL CONTINUE WITH POC
[2022-10-22] MEDS: HYDROmorphone 1 MG/ML INJ. CARTRIDGE IVP PRN (20:14)
[2022-10-22] MEDS: TPN CENTRAL IV SCH ×10 (20:22)
[2022-10-22] MEDS: SODIUM ACETATE IV SCH ×10 (20:22)
[2022-10-22] MEDS: [UNRECOGNIZED DRUG - OTHER] IV SCH ×10 (20:22)
[2022-10-22] MEDS: K PHOS IV SCH ×10 (20:22)
[2022-10-22] MEDS: POTASSIUM CHLORIDE IV SCH ×10 (20:22)
[2022-10-22 23:54] VITALS: BP_SYST 116; PULSE 66; RESP 20; TEMP 98.6; O2SAT 98
[2022-10-23] MEDS: METOCLOPRAMIDE HCL 10 MG/2 ML VIAL IVP SCH ×4 (00:09→18:00)
[2022-10-23] MEDS: HYDROmorphone 1 MG/ML INJ. CARTRIDGE IM PRN (03:36)
[2022-10-23] MEDS: metroNIDAZOLE 500 mg/NS 100 ML IV SCH ×2 (05:32→14:43)
[2022-10-23] MEDS: D5LR 1,000 ML IV SCH (05:32)
--- NOTE | 2022-10-23 06:00 | NUR ---
Paulina Mckeon s/w Janay
--- NOTE | 2022-10-23 06:19 | NUR ---
RECEIVED AN ORDER FROM DR WILLIAMSON TO STOP TPN, ORDER D/C'D IN JUN, PT TPN BEING TITRATED ATT TO STOP INFUSION IN AN HOURS TIME, WILL CONTINUE WITH POC
[2022-10-23 06:22] LABS: BASOPHILS % (AUTO) 0.5 % (0.0-2.0); EOSINOPHILS # (AUTO) 0.2 K/uL (0.0-0.4); EOSINOPHILS % (AUTO) 6.5 % (0.0-4.0); HEMATOCRIT 26.7 % (36-48); HEMOGLOBIN 8.5 g/dL (12.0-16.0); LYMPHOCYTES # (AUTO) 0.4 K/uL (1.0-5.5); LYMPHOCYTES % (AUTO) 12.4 % (20.5-51.5); MEAN CORPUSCULAR HEMOGLOBIN 24 pg (27-31); MEAN CORPUSCULAR HGB CONC 32 % (32-36); MEAN CORPUSCULAR VOLUME 76 fL (79.0-98.0); MONOCYTES # (AUTO) 0.6 K/uL (0.0-1.0); MONOCYTES % (AUTO) 17.2 % (1.7-9.3); NEUTROPHILS # (AUTO) 2.1 K/uL (1.8-7.7); NEUTROPHILS % (AUTO) 63.4 % (40.0-70.0); PLATELET COUNT (AUTO) 208 K/uL (130-430); RED BLOOD CELL COUNT(AUTO) 3.52 MIL/uL (4.2-6.2); RED CELL DISTRIBUTION WIDTH 17.6 % (9.0-15.0); WHITE BLOOD COUNT (AUTO) 3.3 K/uL (4.8-10.8)
[2022-10-23 06:48] LABS: ALBUMIN 2.8 g/dL (3.4-4.8); CALCIUM 8.4 mg/dL (8.4-11.0); CREATININE 0.35 mg/dL (0.55-1.30); PHOSPHORUS 4.6 mg/dL (2.7-4.5); TOTAL BILIRUBIN 0.3 mg/dL (0.0-1.0)
--- NOTE | 2022-10-23 07:08 | NUR ---
PT IN BED, AOX4, EVEN AND UNLABORED BREATHING, DENIED N/V, PAIN OR SOB , D5LR AT 50 TO LORAINE, ABD INCISION C/D/I WITH ABD BINDER IN PLACE, TPN D/C'D THIS AM PER DR. WILLIAMSON ORDER, PT ABLE TO AMBULATE TO RESTROOM WITH WALKER, SPOUSE AT BEDSIDE, TOLERAING FULL LIQUID DIET, VOIDING W/O DIFFICULTY, BS WNL, IN STABLE CONDITION, WILL ENDORSE TO AM SHIFT
[2022-10-23 08:40] VITALS: BP_SYST 95; PULSE 61; RESP 16; TEMP 97.2; O2SAT 97
[2022-10-23] MEDS: DOCUSATE SODIUM 250 MG CAPSULE PO SCH (08:56)
[2022-10-23] MEDS: PANTOPRAZOLE SODIUM 40 MG/VIAL (PROTONIX) IVP SCH (08:56)
[2022-10-23] MEDS ORDERED: ACETAMINOPHEN 325 MG TABLET PO PRN (09:45)
--- NOTE | 2022-10-23 11:16 | NUR ---
Pt was experiencing nausea and abd cramping. Encouraged to ambulate in room and reported abd cramps resolving. Provided scheduled dose of reglan. at bedside.
[2022-10-23 12:47] VITALS: BP_SYST 97; PULSE 63; RESP 18; TEMP 98.1; O2SAT 97
[2022-10-23 12:52] VITALS: O2SAT 90
[2022-10-23] MEDS ORDERED: FLUC200T PO (13:48)
[2022-10-23] MEDS ORDERED: METR-343 PO (13:48)
[2022-10-23] MEDS ORDERED: L.RH1CAP PO (13:48)
--- NOTE | 2022-10-23 14:41 | NUR ---
I SENT MRS UNDERWOOD PACKET TO [facility] AT [facility] FOR [facility] [phone] FAX..DL#[phone]
--- NOTE | 2022-10-23 15:32 | NUR ---
PHYSICAL THERAPY CO-SIGN The Physical Therapy Progress Notes documented by Manager Quality Improvement have been reviewed. Reviewed/Co-Signed by: Kalyan Varela Documentation Done by:WALE BURGOS Addendum: 10/23/22 at 1532 by Kalyan Varela PT Amended: Links added.
--- NOTE | 2022-10-23 15:37 | NUR ---
I FAXED A PACKET TO [facility] [phone] FOR A FRONT WHEEL WALKER TO BE DELIVERED DO PATIENTS HOME. FAXED [facility] AT [facility] [phone]. I ALSO FAXED [facility] [phone]. HEARD BACK FROM [facility] IV MEDS WILL BE DELIVERED TONIGHT OR FIRST THING TOMORROW
--- NOTE | 2022-10-23 15:50 | NUR ---
Patient will receive rocephin IV from [facility] [phone]. Start of care will be 10/24/22.
[2022-10-23] MEDS: SOD FERRIC GLUC COMPLEX/SUC 125 MG in NS 100 ML IV SCH (16:28)
--- NOTE | 2022-10-23 16:41 | NUR ---
I have paged Dr. Dang for discharge wound care orders.
[2022-10-23 17:24] VITALS: BP_SYST 104; PULSE 72; RESP 17; TEMP 98.3; O2SAT 97
[2022-10-23] MEDS: FLUCONAZOLE 200 mg/ NS 100 ML IV SCH (18:00)
--- NOTE | 2022-10-23 18:15 | NUR ---
Pt is being discharged home today. Abdominal dressing changed per new orders. Provided materials for further dressing changes and instructed on care. The LORAINE PICC dressing changed. Pt is finishing her last dose of Rocephin and will go home post. Her son is at bedside and will provide transportation.
[2022-10-23 18:37] VITALS: BP_SYST 104; PULSE 72; RESP 12; TEMP 98.3; O2SAT 97
[2022-10-23 20:00] VITALS: BP_SYST 108; PULSE 71; RESP 18; TEMP 98; O2SAT 97
--- NOTE | 2022-10-23 20:13 | NUR ---
DISCHARGE NOTE Patient awake, alert and oriented. No complains of pain at this time. No acute distress noted. Discharge instructions given to patient and son @ bedside. Verbalized understanding of all instructions. RN escorts patient out of unit to parking lot in a wheelchair at 20:13. Care Plans resolved.
[2022-11-16] MEDS ORDERED: PROPOFOL 200MG/ 20ML VIAL (DIPRIVAN) IV ONE (11:55)
[2022-11-16] MEDS ORDERED: LR 1,000 ML IV.SOLN IV ONE (11:55)
[2022-11-16] MEDS ORDERED: LIDOCAINE 2%, 20 ML MDV ONE (11:55)
[2022-11-16] MEDS ORDERED: SUGAMMADEX SODIUM 200 MG/2 ML VIAL IV ONE (11:55)
[2022-11-16] MEDS ORDERED: NORMAL SALINE 10 ML VIAL ONE (11:55)
[2022-11-16] MEDS ORDERED: NS IRRIG SOLN 1000 ML IR ONE (11:55)
[2022-11-16] MEDS ORDERED: DESFLURANE 15 MIN GAS INH ONE (11:55)
[2022-11-16] MEDS ORDERED: ROCURONIUM BROMIDE 10 MG/ML (ZEMURON) ONE (11:55)
[2022-11-16] MEDS ORDERED: MIDAZOLAM HCL 2 MG/2 ML VIAL (VERSED) ONE (11:55)
[2022-11-16] MEDS ORDERED: BUPIVACAINE /PF 0.5% 30 ML VIAL ONE (11:55)
[2022-11-16] MEDS ORDERED: ONDANSETRON HCL 4 MG/2 ML VIAL ONE (11:55)
[2022-11-16] MEDS ORDERED: fentaNYL CITRATE/PF 100 MCG/2 ML AMP ONE (11:55)
[2022-11-16] MEDS ORDERED: DEXAMETHASONE SOD PHOSPHATE 4 MG/ML VIAL ONE (11:55)
== END 2022-10-23 20:10 | disposition home health service (06) | DRG 329 ==
LOC: SED 05:14 → STU 08:56 → SIC 14:13 → SMU 10-17 09:17
PROVIDERS: ADMIT Internal Medicine; ATTEND Internal Medicine
PROC: 0DTJ4ZZ Resection of Appendix, Percutaneous Endoscopic Approach (ICD-10-PCS; 2022-10-16)
PROC: 0DBW4ZX Excision of Peritoneum, Percutaneous Endoscopic Approach, Diagnostic (ICD-10-PCS; 2022-10-16)
PROC: 3E0M3BZ Introduction of Anesthetic Agent into Peritoneal Cavity, Percutaneous Approach (ICD-10-PCS; 2022-10-16)
PROC: 0DB84ZZ Excision of Small Intestine, Percutaneous Endoscopic Approach (ICD-10-PCS; principal; 2022-10-16 13:15)
DX: K63.1 Perforation of intestine (nontraumatic) (principal); E43 Unspecified severe protein-calorie malnutrition; K35.32 Acute appendicitis with perforation, localized peritonitis, and gangrene, without abscess; D84.9 Immunodeficiency, unspecified; K56.7 Ileus, unspecified; Z68.1 Body mass index [BMI] 19.9 or less, adult; C85.10 Unspecified B-cell lymphoma, unspecified site; B96.20 Unspecified Escherichia coli [E. coli] as the cause of diseases classified elsewhere; D50.9 Iron deficiency anemia, unspecified; Z88.5 Allergy status to narcotic agent; Z88.8 Allergy status to other drugs, medicaments and biological substances
CPT/HCPCS: 36415; 71045; 74018; 76376; 80048; 80053; 80061; 81003; 82607; 82746; 83037; 83540; 83550; 83605; 83690; 83735; 84100; 84484; 85025; 86886; 86900; 86901; 87040; 87070; 87070-TC; 87075-TC; 87081; 88304; 88305; 88307; 93005; 96361; 96365; 96367; 96375; 97110-GP; 97116-GP; 97530-GP; 99285; C1727; C9113; C9290; J0131; J0610; J0690; J0696; J1100; J1170; J1450; J2001; J2270; J2405; J2543; J2704; J2765; J2916; J3010; J3465; J3475; J3480; J3490; J7040; J7050; J7060; J7120